=== PATIENT | female | born 1960 | race Caucasian/White ===

== ENCOUNTER → 2018-05-09 | Outpatient (CLI) | payer OTHER ==
--- NOTE | 2018-05-09 20:42 | XR ---
EXAMINATION TYPE: XR knee limited LT DATE OF EXAM: 05/09/2018 CLINICAL HISTORY: Pain. TECHNIQUE: Two views of the left knee are obtained. COMPARISON: None. FINDINGS: There is no acute fracture/dislocation evident in left knee. There is mild tricompartment joint space loss without significant spurring. The overlying soft tissue appears unremarkable. IMPRESSION: As above.
== END | disposition home or self-care (01) ==
LOC: RADXRMAIN 16:57
PROVIDERS: ATTEND Family Medicine
DX: M25.862 Other specified joint disorders, left knee (principal); M25.562 Pain in left knee

== ENCOUNTER → 2021-01-13 | Outpatient (CLI) | payer BC ==
--- NOTE | 2021-01-16 12:22 | MM ---
Reason for exam: screening (asymptomatic). Last mammogram was performed 5 years and 5 months ago. History: Patient is postmenopausal. Physical Findings: A clinical breast exam by your physician is recommended on an annual basis and results should be correlated with mammographic findings. MG Screening Mammo w CAD Bilateral CC and MLO view(s) were taken. Prior study comparison: August 04, 2015, left breast MG work up mamm w CAD LT. July 18, 2015, bilateral MG screening mammo w CAD. There are scattered fibroglandular densities. There is no discrete abnormality. No significant changes when compared with prior studies. ASSESSMENT: Negative, BI-RAD 1 RECOMMENDATION: Routine screening mammogram of both breasts in 1 year.
== END | disposition home or self-care (01) ==
LOC: RADMAMWWP 07:04
PROVIDERS: ATTEND Family Medicine
DX: Z12.31 Encounter for screening mammogram for malignant neoplasm of breast (principal); Z78.0 Asymptomatic menopausal state
CPT/HCPCS: 77067

== ENCOUNTER → 2022-01-15 | Outpatient (CLI) | payer BC ==
--- NOTE | 2022-01-17 09:25 | MM ---
Reason for exam: screening (asymptomatic). Last mammogram was performed 1 year ago. History: Patient is postmenopausal. Physical Findings: A clinical breast exam by your physician is recommended on an annual basis and results should be correlated with mammographic findings. MG Screening Mammo w CAD Bilateral CC and MLO view(s) were taken. Prior study comparison: January 13, 2021, bilateral MG screening mammo w CAD. August 04, 2015, left breast MG work up mamm w CAD LT. There are scattered fibroglandular densities. Focal asymmetry in the left breast, stable. No significant changes when compared with prior studies. ASSESSMENT: Benign, BI-RAD 2 RECOMMENDATION: Routine screening mammogram of both breasts in 1 year.
== END | disposition home or self-care (01) ==
LOC: RADMAMWWP 15:22
PROVIDERS: ATTEND Family Medicine
DX: Z12.31 Encounter for screening mammogram for malignant neoplasm of breast (principal); Z78.0 Asymptomatic menopausal state
CPT/HCPCS: 77067

== ENCOUNTER 2023-07-07 17:17 | Observation (INO) | payer BC, OTHER ==
--- NOTE | 2023-07-07 17:29 | ED ---
General Adult HPI - General Source: patient, RN notes reviewed <Kimberly Beasley - Last Filed: 07/08/23 00:07> <Carmen Ya - Last Filed: 07/08/23 01:38> - General Stated complaint: LOWER BACK PAIN W VOMITING Time Seen by Provider: 07/07/23 17:30 - History of Present Illness Initial comments: 62 year old female presents to the emergency department for chief complaint of right flank pain x1 day. She states that she was at her daughters house and noticed the pain start while she was sitting. She reports that the pain radiates to the right sided groin. Denies aggravating and alleviating factors. No history of kidney stones. PMH includes HTN. Denies fever, chills, dysuria. (Kimberly Beasley) - Related Data Home Medications Medication Instructions Recorded Confirmed hydroCHLOROthiazide 25 mg PO DAILY 12/15/19 12/18/19 Allergies Allergy/AdvReac Type Severity Reaction Status Date / Time amoxicillin Allergy Rash/Hives Verified 07/07/23 17:31 sulfamethoxazole Allergy Rash/Hives Verified 07/07/23 17:31 [From Septra] trimethoprim [From Junra] Allergy Rash/Hives Verified 07/07/23 17:31 Review of Systems ROS Other: All systems not noted in ROS Statement are negative. <Kimberly Beasley - Last Filed: 07/08/23 00:07> ROS Other: All systems not noted in ROS Statement are negative. <Carmen Ya P - Last Filed: 07/08/23 01:38> ROS Statement: Those systems with pertinent positive or pertinent negative responses have been documented in the HPI. Past Medical History Past Medical History: GERD/Reflux, Hypertension, Osteoarthritis (OA) Additional Past Medical History / Comment(s): hx migraines years ago, History of Any Multi-Drug Resistant Organisms: None Reported Past Surgical History: Orthopedic Surgery, Tubal Ligation Additional Past Surgical History / Comment(s): left knee arthroscopy Past Anesthesia/Blood Transfusion Reactions: No Reported Reaction Past Psychological History: No Psychological Hx Reported Past Alcohol Use History: Occasional Past Drug Use History: None Reported - Past Family History Mother Family Medical History: Cancer Additional Family Medical History / Comment(s): colon Sister(s) Family Medical History: Cancer Additional Family Medical History / Comment(s): bone cancer <Kimberly Beasley - Last Filed: 07/08/23 00:07> General Exam Limitations: no limitations General appearance: alert, in no apparent distress Head exam: Present: atraumatic, normocephalic, normal inspection Eye exam: Present: normal appearance, PERRL, EOMI. Absent: scleral icterus, conjunctival injection, periorbital swelling ENT exam: Present: normal exam, mucous membranes moist Neck exam: Present: normal inspection. Absent: tenderness, meningismus, lymphadenopathy Respiratory exam: Present: normal lung sounds bilaterally. Absent: respiratory distress, wheezes, rales, rhonchi, stridor Cardiovascular Exam: Present: regular rate, normal rhythm, normal heart sounds. Absent: systolic murmur, diastolic murmur, rubs, gallop, clicks GI/Abdominal exam: Present: tenderness, normal bowel sounds. Absent: distended, guarding, rebound, rigid Extremities exam: Present: normal inspection, full ROM, normal capillary refill. Absent: tenderness, pedal edema, joint swelling, calf tenderness Back exam: Present: normal inspection Neurological exam: Present: alert, oriented X3 Psychiatric exam: Present: normal affect, normal mood Skin exam: Present: warm, dry, intact, normal color. Absent: rash <Kimberly Beasley - Last Filed: 07/08/23 00:07> - General Exam Comments Initial Comments: Visual Physical Exam Vital signs reviewed General: Well-appearing, nontoxic, no acute distress. Head: Normocephalic, atraumatic Eyes: PERRLA, EOMI ENT: Airway patent Chest: Nonlabored breathing Skin: No visual rash, normal skin tone Neuro: Alert and oriented 3 Musculoskeletal: No gross abnormalities (Kimberly Beasley) Course Vital Signs 07/07/23 07/08/23 17:31 01:00 Temperature 98.0 F Pulse Rate 87 79 Respiratory 18 18 Rate Blood Pressure 154/65 126/79 O2 Sat by Pulse 99 94 L Oximetry Medical Decision Making - Lab Data Result diagrams: 07/07/23 19:10 07/07/23 19:10 <Kimberly Beasley - Last Filed: 07/08/23 00:07> - Lab Data Result diagrams: 07/07/23 19:10 07/07/23 19:10 <Carmen Ya - Last Filed: 07/08/23 01:38> - Medical Decision Making I preformed the quick note portion of this chart. Electronically signed by Kimberly Beasley PA-C Was pt. sent in by a medical professional or institution (MARIA ISABEL Rodas, INFORMATION MANAGEMENT SPECIALIST, urgent care, hospital, or fci...) When possible be specific @ -[No] Did you speak to anyone other than the patient for history (EMS, parent, family, police, friend...)? What history was obtained from this source @ -[No] Did you review nursing and triage notes (agree or disagree)? Why? @ -[I reviewed and agree with nursing and triage notes] Were old charts reviewed (outside hosp., previous admission, EMS record, old EKG, old radiological studies, urgent care reports/EKG's, fci records)? Report findings @ -[No old charts were reviewed] Differential Diagnosis (chest pain, altered mental status, abdominal pain women, abdominal pain men, vaginal bleeding, weakness, fever, dyspnea, syncope, headache, dizziness, GI bleed, back pain, seizure, CVA, palpatations, mental health, musculoskeletal)? @ -[Differential Abdominal Pain Women: Appendicitis, Cholecystitis, diverticulosis, ischemic bowel, pancreatitis, hepatitis, UTI, gastroenteritis, AAA, incarcerated hernia, bowel obstruction, constipation, inflammatory bowel, hepatitis, peptic ulcer disease, splenic infarction, perforated viscus, vulvitis, ovarian torsion, PID, kidney stone, placenta abruption, this is not meant to be an all-inclusive list] EKG interpreted by me (3pts min.). @ -[None] X-rays interpreted by me (1pt min.). @ -[None done] CT interpreted by me (1pt min.). @ -[CT abdomen and pelvis shows 9 mm obstructing stone in the right ureteropelvic junction with moderate hydronephrosis] U/S interpreted by me (1pt. min.). @ -[None done] What testing was considered but not performed or refused? (CT, X-rays, U/S, labs)? Why? @ -[None] What meds were considered but not given or refused? Why? @ -[None] Did you discuss the management of the patient with other professionals (professionals i.e. Dr., PA, INFORMATION MANAGEMENT SPECIALIST, lab, RT, psych nurse, social services coordinator, hairmasters manager, teacher, loan officer assistant, case supervisor)? Give summary @ -[Management discussed with Dr. Lau who states if symptoms well controlled she can follow up outpatient this week or be admitted for symptom management] Was smoking cessation discussed for >3mins.? @ -[No] Was critical care preformed (if so, how long)? @ -[No] Were there social determinants of health that impacted care today? How? (Homelessness, low income, unemployed, alcoholism, drug addiction, transportation, low edu. Level, literacy, decrease access to med. care, skilled nursing, rehab)? @ -[No] Was there de-escalation of care discussed even if they declined (Discuss DNR or withdrawal of care, Hospice)? DNR status @ -[No] What co-morbidities impacted this encounter? (DM, HTN, Smoking, COPD, CAD, Cancer, CVA, ARF, Chemo, Hep., AIDS, mental health diagnosis, sleep apnea, morbid obesity)? @ -[None] Was patient admitted / discharged? Hospital course, mention meds given and route, prescriptions, significant lab abnormalities, going to OR and other p ertinent info. @ -[Patient presented emergency department with chief complaint of right flank pain radiating to the groin 1 day. She reports that this has associated nausea and vomiting. She is not taking anything for pain today. She denies any urinary symptoms or history of kidney stones. CT abdomen and pelvis shows 9 mm obstructing stone in the right ureter pelvic junction with moderate hydronephrosis. CBC shows WBC 12.0, hemoglobin 14.3; CMP shows sodium 135, potassium 4.3. UA shows large blood, 19 WBCs. Patient's symptoms were temporarily controlled with Toradol and Zofran. On reevaluation, patient reports pain at 9 out of 10 and nausea again. Management discussed with Dr. Lau who states that if the patient's symptoms are controlled to go home with outpatient follow-up or be admitted to the hospital for symptom management with Dr. Lau on consult. She given morphine and Reglan. Case turned over to Dr. Ya at 0010 pending admission. ] Undiagnosed new problem with uncertain prognosis? @ -[No] Drug Therapy requiring intensive monitoring for toxicity (Heparin, Nitro, Insulin, Cardizem)? @ -[No] Were any procedures done? @ -[No] Diagnosis/symptom? @ -[Right renal stone] Acute, or Chronic, or Acute on Chronic? @ -[acute] Uncomplicated (without systemic symptoms) or Complicated (systemic symptoms)? @ -uncomplicated Side effects of treatment? @ -[No] Exacerbation, Progression, or Severe Exacerbation? @ -[No] Poses a threat to life or bodily function? How? (Chest pain, [place], [place], pneumonia, PE, COPD, DKA, ARF, appy, cholecystitis, CVA, Diverticulitis, Homicidal, Suicidal, threat to staff... and all critical care pts) @ -[No] (Kimberly Beasley) Patient has a 9 mm obstructing stone with significant pain, received 2 doses of pain medication in the emergency department and will be admitted for pain management and evaluation by urology for possible cystography. Nothing by mouth orders were placed. Pain management orders were placed. Dr. Ng accepts the admission. (Carmen Ya) - Lab Data Lab Results 07/07/23 07/07/23 07/07/23 Range/Units 19:10 19:10 23:00 WBC 12.0 H (3.8-10.6) k/uL RBC 4.90 (3.80-5.40) m/uL Hgb 14.3 (11.4-16.0) gm/dL Hct 43.4 (34.0-46.0) % MCV 88.6 (80.0-100.0) fL MCH 29.2 (25.0-35.0) pg MCHC 33.0 (31.0-37.0) g/dL RDW 13.2 (11.5-15.5) % Plt Count 385 (150-450) k/uL MPV 7.5 Neutrophils % 75 % Lymphocytes % 20 % Monocytes % 4 % Eosinophils % 1 % Basophils % 0 % Neutrophils # 8.9 H (1.3-7.7) k/uL Lymphocytes # 2.4 (1.0-4.8) k/uL Monocytes # 0.4 (0-1.0) k/uL Eosinophils # 0.1 (0-0.7) k/uL Basophils # 0.0 (0-0.2) k/uL Sodium 135 L (137-145) mmol/L Potassium 4.3 (3.5-5.1) mmol/L Chloride 101 (98-107) mmol/L Carbon Dioxide 20 L (22-30) mmol/L Anion Gap 14 mmol/L BUN 18 H (7-17) mg/dL Creatinine 0.83 (0.52-1.04) mg/dL Est GFR (CKD-EPI)AfAm 87 (>60 ml/min/1.73 sqM) Est GFR (CKD-EPI)NonAf 76 (>60 ml/min/1.73 sqM) Glucose 139 H (74-99) mg/dL Calcium 10.0 (8.4-10.2) mg/dL Total Bilirubin 0.5 (0.2-1.3) mg/dL AST 30 (14-36) U/L ALT 25 (4-34) U/L Alkaline Phosphatase 102 (38-126) U/L Total Protein 7.9 (6.3-8.2) g/dL Albumin 4.7 (3.5-5.0) g/dL Amylase 45 (30-110) U/L Lipase 116 (23-300) U/L Urine Color Light Red Urine Appearance Clear (Clear) Urine pH 6.0 (5.0-8.0) Ur Specific [place] 1.028 (1.001-1.035) Urine Protein 1+ H (Negative) Urine Glucose (UA) Negative (Negative) Urine Ketones 2+ H (Negative) Urine Blood Large H (Negative) Urine Nitrite Negative (Negative) Urine Bilirubin Negative (Negative) Urine Urobilinogen <2.0 (<2.0) mg/dL Ur Leukocyte Esterase Trace H (Negative) Urine RBC >182 H (0-5) /hpf Urine WBC 19 H (0-5) /hpf Ur Squamous Epith Cells 3 (0-4) /hpf Urine Bacteria Occasional H (None) /hpf Hyaline Casts 23 H (0-2) /lpf Urine Mucus Few H (None) /hpf Disposition <Kimberly Beasley - Last Filed: 07/08/23 00:07> Is patient prescribed a controlled substance at d/c from ED?: No <Carmen Ya - Last Filed: 07/08/23 01:38> Clinical Impression: Nephrolithiasis Disposition: ADMITTED IP TO THIS HOSP Condition: Stable
[2023-07-07 19:35] LABS: Basophils % (A) 0 %; Eosinophils # (A) 0.1 k/uL (0-0.7); Eosinophils % (A) 1 %; HCT 43.4 % (34.0-46.0); HGB 14.3 gm/dL (11.4-16.0); Lymphocytes # (A) 2.4 k/uL (1.0-4.8); Lymphocytes % (A) 20 %; MCH 29.2 pg (25.0-35.0); MCV 88.6 fL (80.0-100.0); Mean Platelet Volume 7.5; Monocytes # (A) 0.4 k/uL (0-1.0); Monocytes % (A) 4 %; Neutrophils # (A) 8.9 k/uL (1.3-7.7); Neutrophils % (A) 75 %; Platelet Count 385 k/uL (150-450); RDW 13.2 % (11.5-15.5)
[2023-07-07 19:44] LABS: ALT 25 U/L (4-34); AST 30 U/L (14-36); African American GFR (CKD) 87 (>60 ml/min/1.73 sqM); Albumin 4.7 g/dL (3.5-5.0); Alkaline Phosphatase 102 U/L (38-126); Amylase 45 U/L (30-110); Anion Gap 14 mmol/L; Blood Urea Nitrogen 18 mg/dL (7-17); Carbon Dioxide 20 mmol/L (22-30); Chloride 101 mmol/L (98-107); Glucose 139 mg/dL (74-99); Lipase 116 U/L (23-300); Non-African American GFR(CKD) 76 (>60 ml/min/1.73 sqM); Potassium 4.3 mmol/L (3.5-5.1); Sodium 135 mmol/L (137-145); Total Bilirubin 0.5 mg/dL (0.2-1.3); Total Protein 7.9 g/dL (6.3-8.2)
--- NOTE | 2023-07-07 20:03 | CT ---
EXAMINATION TYPE: CT abdomen pelvis wo con CT DLP: 743.3 mGycm, Automated exposure control for dose reduction was used. DATE OF EXAM: 07/07/2023 7:30 PM COMPARISON: None. CLINICAL INDICATION:Female, 62 years old with history of flank pain, rt; right flank pain, nausea, vo miting TECHNIQUE: Axial CT of the abdomen and pelvis. Sagittal and coronal reformats were created on a [employer] workstation. Contrast used: None (none if empty) Oral contrast used: without Oral Contrast (none if empty) FINDINGS: LOWER CHEST: Unremarkable ABDOMEN LIVER: Unremarkable GALLBLADDER AND BILE DUCTS: Unremarkable. PANCREAS: Unremarkable. SPLEEN: Unremarkable. ADRENAL GLANDS: Unremarkable. KIDNEYS AND URETERS: Moderate right hydronephrosis secondary obstructing 9 mm calculus at the uretero pelvic junction. No evidence of left renal calculus or obstruction. PELVIS BLADDER: Unremarkable REPRODUCTIVE: Unremarkable. ABDOMEN & PELVIS STOMACH AND BOWEL: Moderate hiatal hernia. No evidence of bowel obstruction. The appendix is normal. Scattered colonic diverticula. PERITONEUM/RETROPERITONEUM: No evidence of pneumoperitoneum or free fluid. VASCULATURE: Mild atherosclerotic calcifications are present throughout the abdominal aorta and its b ranches. No evidence of aortic aneurysm. MUSCULOSKELETAL: L1 vertebral body compression deformity. There is grade 1 anterolisthesis of L4 and L5. No acute osseous abnormalities. Mild disc degeneration changes are present throughout the thoraco lumbar spine. LYMPH NODES: No gross evidence for lymphadenopathy. SOFT TISSUE/ABDOMINAL WALL: Fat-containing umbilical hernia. IMPRESSION: 1. Moderate right hydronephrosis secondary obstructing 9 mm calculus at the ureteropelvic junction. 2. Moderate hiatal hernia. 3. Colonic diverticulosis.
[2023-07-07] MEDS ORDERED: ONDANSETRON 4 MG/2 ML VIAL IVP STA (21:03)
[2023-07-07] MEDS ORDERED: KETOROLAC 15 MG/ML 1 ML VIAL IVP STA (21:03)
[2023-07-07] MEDS ORDERED: METOCLOPRAMIDE 5 MG/ML 2 ML VIAL IVP STA (23:42)
[2023-07-07] MEDS ORDERED: MORPHINE SULFATE 2 MG/ML SYRINGE IVP ONE (23:42)
[2023-07-07] MEDS ORDERED: SODIUM CHLORIDE 0.9% 500 ML 500 ML IV ONE (23:47)
[2023-07-07 23:51] LABS: Appearance,Urine Clear (Clear); Bacteria,Urine Occasional /hpf; Bilirubin,Urine Negative (Negative); Blood,Urine Large (Negative); Color,Urine Light Red; Glucose,Urine (UA) Negative (Negative); Hyaline Casts,Urine 23 /lpf (0-2); Ketones,Urine 2+ (Negative); Leukocyte Esterase,Urine Trace (Negative); Mucus,Urine Few /hpf; Nitrite,Urine Negative (Negative); Protein,Urine 1+ (Negative); RBC,Urine >182 /hpf (0-5); Specific Gravity,Urine 1.028 (1.001-1.035); Squamous Epithelial Cell,Urine 3 /hpf (0-4); Urobilinogen,Urine <2.0 mg/dL (<2.0); WBC,Urine 19 /hpf (0-5)
[2023-07-08] MEDS ORDERED: MORPHINE SULFATE 4 MG/ML SYRINGE IVP PRN (00:06)
[2023-07-08] MEDS ORDERED: NALOXONE 0.4 MG/ML 1 ML VIAL IV PRN (01:09)
[2023-07-08] MEDS ORDERED: MORPHINE SULFATE 4 MG/ML SYRINGE IV PRN (01:09)
[2023-07-08] MEDS ORDERED: ONDANSETRON 4 MG/2 ML VIAL IVP PRN (01:09)
[2023-07-08] MEDS: SODIUM CHLORIDE 0.9% 1,000 ML IV SCH ×2 (01:19→16:22)
[2023-07-08] MEDS: KETOROLAC 15 MG/ML 1 ML VIAL IVP PRN (06:15)
[2023-07-08] MEDS: LEVOFLOXACIN 500MG-D5W PMX 500 MG in DEXTROSE/WATER 1 100ML.BAG IVPB SCH (09:14)
--- NOTE | 2023-07-08 12:53 | P.HPIM ---
History of Present Illness H&P Date: 07/08/23 History of present illness; patient is a 62-year-old lady with past medical hist ory significant for hypertension who presented to The ER because of right flank pain. Patient stated she was all right yesterday when she started noticing right flank pain, sudden onset, intermittent, excruciating, radiating down her right groin, no aggravating or relieving factors associated with this flank pain. There was no complain of any fever or chills. Patient was complaining of nausea and vomiting associated with this flank pain. Denies any burning pain while urination. Denies any hematuria. Because of right flank pain, patient came to the ER Initial lab work done in the ER showed WBC 12, hemoglobin 14.8, platelet count 85, sodium 139 potassium 4.3, BUN 18.83, glucose 139 UA done showed nitrite negative, leukocyte Estrace trace amounts, urine WBC 19, RBC 182, CT abdominal and pelvis done showed moderate right hydronephrosis secondary to obstructing 9 mm stone at the ureteropelvic junction Patient admitted to medicine service REVIEW OF SYSTEMS: CONSTITUTIONAL: No fever, no malaise, no fatigue. HEENT: No recent visual problems or hearing problems. Denied any sore throat. CARDIOVASCULAR: No chest pain, orthopnea, PND, no palpitations, no syncope. PULMONARY: No shortness of breath, no cough, no hemoptysis. GASTROINTESTINAL: As mentioned above NEUROLOGICAL: No headaches, no weakness, no numbness. HEMATOLOGICAL: Denies any bleeding or petechiae. GENITOURINARY: As mentioned above MUSCULOSKELETAL/RHEUMATOLOGICAL: Denies any joint pain, swelling, or any muscle pain. ENDOCRINE: Denies any polyuria or polydipsia. The rest of the 14-point review of systems is negative. PHYSICAL EXAMINATION: GENERAL: The patient is alert and oriented x3, not in any acute distress. Well developed, well nourished. HEENT: Pupils are round and equally reacting to light. EOMI. No scleral icterus. No conjunctival pallor. Normocephalic, atraumatic. No pharyngeal erythema. No thyromegaly. CARDIOVASCULAR: S1 and S2 present. No murmurs, rubs, or gallops. PULMONARY: Chest is clear to auscultation, no wheezing or crackles. ABDOMEN: Soft, nontender, nondistended, normoactive bowel sounds. No palpable organomegaly. MUSCULOSKELETAL: No joint swelling or deformity. EXTREMITIES: No cyanosis, clubbing, or pedal edema. NEUROLOGICAL: Gross neurological examination did not reveal any focal deficits. SKIN: No rashes. Assessment and plan Right ureter stone Right-sided Hydronephrosis Hypertension Monitor vital signs Monitor CBC Monitor CMP Continue IV fluids Continue pain management Continue IV Levaquin Continue antiemetics Urology consulted Labs and medication were reviewed.. Continue same treatment. Continue with symptomatic treatment. Resume home medication. Monitor labs and vitals. DVT and GI prophylaxis. Further recommendations as per clinical course of the patient Dictation was produced using [employer] dictation software. please excuse any grammatical, word or spelling errors. Past Medical History Past Medical History: GERD/Reflux, Hypertension, Osteoarthritis (OA) Additional Past Medical History / Comment(s): hx migraines years ago, History of Any Multi-Drug Resistant Organisms: None Reported Past Surgical History: Orthopedic Surgery, Tubal Ligation Additional Past Surgical History / Comment(s): left knee arthroscopy Past Anesthesia/Blood Transfusion Reactions: No Reported Reaction Past Psychological History: No Psychological Hx Reported Smoking Status: Unknown if ever smoked Past Alcohol Use History: Occasional Past Drug Use History: None Reported - Past Family History Mother Family Medical History: Cancer Additional Family Medical History / Comment(s): colon Sister(s) Family Medical History: Cancer Additional Family Medical History / Comment(s): bone cancer Medications and Allergies Home Medications Medication Instructions Recorded Confirmed Type No Known Home Medications 07/08/23 07/08/23 History Allergies Allergy/AdvReac Type Severity Reaction Status Date / Time amoxicillin Allergy Rash/Hives Verified 07/08/23 08:10 sulfamethoxazole Allergy Rash/Hives Verified 07/08/23 08:10 [From ] trimethoprim [From ] Allergy Rash/Hives Verified 07/08/23 08:10 Physical Exam Vitals: Vital Signs Temp Pulse Resp BP Pulse Ox 07/08/23 08:00 16 07/08/23 07:51 97.8 F 74 16 136/67 98 07/08/23 05:40 80 16 132/73 07/08/23 03:44 79 16 126/78 94 L 07/08/23 01:00 79 18 126/79 94 L 07/07/23 17:31 98.0 F 87 18 154/65 99 Intake and Output 07/07/23 07/08/23 07/08/23 22:59 06:59 14:59 Other: Weight 83.007 kg 83.007 kg Results CBC & Chem 7: 07/07/23 19:10 07/07/23 19:10 Labs: Abnormal Lab Results - Last 24 Hours (Table) 07/07/23 07/07/23 07/07/23 Range/Units 19:10 19:10 23:00 WBC 12.0 H (3.8-10.6) k/uL Neutrophils # 8.9 H (1.3-7.7) k/uL Sodium 135 L (137-145) mmol/L Carbon Dioxide 20 L (22-30) mmol/L BUN 18 H (7-17) mg/dL Glucose 139 H (74-99) mg/dL Urine Protein 1+ H (Negative) Urine Ketones 2+ H (Negative) Urine Blood Large H (Negative) Ur Leukocyte Esterase Trace H (Negative) Urine RBC >182 H (0-5) /hpf Urine WBC 19 H (0-5) /hpf Urine Bacteria Occasional H (None) /hpf Hyaline Casts 23 H (0-2) /lpf Urine Mucus Few H (None) /hpf
[2023-07-09] MEDS: SODIUM CHLORIDE 0.9% 1,000 ML IV SCH ×2 (06:30→17:37)
[2023-07-09] MEDS: KETOROLAC 15 MG/ML 1 ML VIAL IVP PRN ×3 (08:16→21:54)
[2023-07-09] MEDS: LEVOFLOXACIN 500MG-D5W PMX 500 MG in DEXTROSE/WATER 1 100ML.BAG IVPB SCH (08:16)
[2023-07-09] MEDS ORDERED: TAMSULOSIN 0.4 MG CAP.ER.24H PO STA (09:27)
--- NOTE | 2023-07-09 10:00 | P.GSCN ---
History of Present Illness Consult date: 07/08/23 Reason for Consult: right ure History of present illness: This is a 62 yo female with hx of 9mm right sided ureteral stone. She was admitted to the hospital with intractable pain, it's associated with nausea. Denies any gross hematuria. No previous history of kidney stones. No known History of kidney stones. In the air pain was controlled with IV pain medications. She underwent a CT which showed evidence of a 9 mm right-sided UPJ stone with moderate hydronephrosis. Review of Systems - Constitutional Denies fever, Denies weight loss - Cardiovascular Denies chest pain, Denies shortness of breath - Respiratory Denies cough, Denies 7 - Gastrointestinal Reports abdominal pain, Reports nausea - Genitourinary Genitourinary: Reports flank pain, Denies dysuria, Denies hematuria - Neurological Denies headaches, Denies syncope Past Medical History Past Medical History: GERD/Reflux, Hypertension, Osteoarthritis (OA) Additional Past Medical History / Comment(s): hx migraines years ago, History of Any Multi-Drug Resistant Organisms: None Reported Past Surgical History: Orthopedic Surgery, Tubal Ligation Additional Past Surgical History / Comment(s): left knee arthroscopy Past Anesthesia/Blood Transfusion Reactions: No Reported Reaction Past Psychological History: No Psychological Hx Reported Smoking Status: Unknown if ever smoked Past Alcohol Use History: Occasional Past Drug Use History: None Reported - Past Family History Mother Family Medical History: Cancer Additional Family Medical History / Comment(s): colon Sister(s) Family Medical History: Cancer Additional Family Medical History / Comment(s): bone cancer Medications and Allergies Home Medications Medication Instructions Recorded Confirmed Type No Known Home Medications 07/08/23 07/08/23 History Allergies Allergy/AdvReac Type Severity Reaction Status Date / Time amoxicillin Allergy Rash/Hives Verified 07/08/23 08:10 sulfamethoxazole Allergy Rash/Hives Verified 07/08/23 08:10 [From ] trimethoprim [From ] Allergy Rash/Hives Verified 07/08/23 08:10 Surgical - Exam Vital Signs Temp Pulse Resp BP Pulse Ox 98.0 F 87 18 154/65 99 07/07/23 17:31 07/07/23 17:31 07/07/23 17:31 07/07/23 17:31 07/07/23 17:31 - General no distress, moderate pain - Eyes normal ocular movement, no pale - ENT normal nares, normal mucosa - Respiratory normal expansion, normal respiratory effort - Abdomen Abdomen: soft, tender (Right flank) - Psychiatric oriented to time, oriented to person, oriented to place Results - Labs 07/07/23 19:10 07/07/23 19:10 Abnormal Lab Results - Last 24 Hours (Table) 07/07/23 07/07/23 07/07/23 Range/Units 19:10 19:10 23:00 WBC 12.0 H (3.8-10.6) k/uL Neutrophils # 8.9 H (1.3-7.7) k/uL Sodium 135 L (137-145) mmol/L Carbon Dioxide 20 L (22-30) mmol/L BUN 18 H (7-17) mg/dL Glucose 139 H (74-99) mg/dL Urine Protein 1+ H (Negative) Urine Ketones 2+ H (Negative) Urine Blood Large H (Negative) Ur Leukocyte Esterase Trace H (Negative) Urine RBC >182 H (0-5) /hpf Urine WBC 19 H (0-5) /hpf Urine Bacteria Occasional H (None) /hpf Hyaline Casts 23 H (0-2) /lpf Urine Mucus Few H (None) /hpf Diabetes panel 07/07/23 Range/Units 19:10 Sodium 135 L (137-145) mmol/L Potassium 4.3 (3.5-5.1) mmol/L Chloride 101 (98-107) mmol/L Carbon Dioxide 20 L (22-30) mmol/L BUN 18 H (7-17) mg/dL Creatinine 0.83 (0.52-1.04) mg/dL Glucose 139 H (74-99) mg/dL Calcium 10.0 (8.4-10.2) mg/dL AST 30 (14-36) U/L ALT 25 (4-34) U/L Alkaline Phosphatase 102 (38-126) U/L Total Protein 7.9 (6.3-8.2) g/dL Albumin 4.7 (3.5-5.0) g/dL Calcium panel 07/07/23 Range/Units 19:10 Calcium 10.0 (8.4-10.2) mg/dL Albumin 4.7 (3.5-5.0) g/dL Pituitary panel 07/07/23 Range/Units 19:10 Sodium 135 L (137-145) mmol/L Potassium 4.3 (3.5-5.1) mmol/L Chloride 101 (98-107) mmol/L Carbon Dioxide 20 L (22-30) mmol/L BUN 18 H (7-17) mg/dL Creatinine 0.83 (0.52-1.04) mg/dL Glucose 139 H (74-99) mg/dL Calcium 10.0 (8.4-10.2) mg/dL Adrenal panel 07/07/23 Range/Units 19:10 Sodium 135 L (137-145) mmol/L Potassium 4.3 (3.5-5.1) mmol/L Chloride 101 (98-107) mmol/L Carbon Dioxide 20 L (22-30) mmol/L BUN 18 H (7-17) mg/dL Creatinine 0.83 (0.52-1.04) mg/dL Glucose 139 H (74-99) mg/dL Calcium 10.0 (8.4-10.2) mg/dL Total Bilirubin 0.5 (0.2-1.3) mg/dL AST 30 (14-36) U/L ALT 25 (4-34) U/L Alkaline Phosphatase 102 (38-126) U/L Total Protein 7.9 (6.3-8.2) g/dL Albumin 4.7 (3.5-5.0) g/dL - Imaging CT scan - abdomen: image reviewed (9 Millimeter right UPJ stone with hydronephrosis) Assessment and Plan Assessment: This is a 62-year-old female history of a 9 mm right-sided UPJ stone, she symptomatically from her stone. Option of right-sided ureteroscopy with holmium laser was discussed with her. Aware of the risk which was benign limited to bleeding, infection, injury to the ureter. Risk of anesthesia was also discussed -Or for right-sided ureteroscopy, holmium laser lithotripsy, stone basketing and stent insertion
[2023-07-09] MEDS ORDERED: SODIUM CHLORIDE 0.9% 1,000 ML IV ONE (11:55)
[2023-07-09] MEDS ORDERED: ONDANSETRON 4 MG/2 ML VIAL IVP ONE (11:55)
[2023-07-09] MEDS ORDERED: DEXAMETHASONE SOD PHOSPHATE 4 MG/ML 1 ML VIAL IVP ONE (11:56)
--- NOTE | 2023-07-09 13:03 | P.PN ---
Subjective Progress Note Date: 07/09/23 * 62-year-old lady with past medical history significant for hypertension who presented to The ER because of right flank pain. Patient stated she was all right yesterday when she started noticing right flank pain, sudden onset, intermittent, excruciating, radiating down her right groin, no aggravating or relieving factors associated with this flank pain. There was no complain of any fever or chills. Patient was complaining of nausea and vomiting associated with this flank pain. Denies any burning pain while urination. Denies any hematuria. Because of right flank pain, patient came to the ER * Initial lab work done in the ER showed WBC 12, hemoglobin 14.8, platelet count 85, sodium 139 potassium 4.3, BUN 18.83, glucose 139 * UA done showed nitrite negative, leukocyte Estrace trace amounts, urine WBC 19, RBC 182, * CT abdominal and pelvis done showed moderate right hydronephrosis secondary to obstructing 9 mm stone at the ureteropelvic junction * Consultations obtained from urology. Waiting for cystoscopy Objective - Vital Signs Vital signs: Vital Signs Temp 97.6 F 07/09/23 11:54 Pulse 69 07/09/23 11:54 Resp 18 07/09/23 11:54 BP 164/76 07/09/23 11:54 Pulse Ox 94 L 07/09/23 11:54 FiO2 Intake & Output 07/08/23 07/09/23 07/09/23 18:59 06:59 18:59 Intake Total 120 600 500 Balance 120 600 500 Intake: IV 500 Oral 120 600 Other: Voiding Method Toilet Toilet Toilet # Voids 1 1 - Exam PHYSICAL EXAMINATION: GENERAL: The patient is alert and oriented x3, not in any acute distress. Well developed, well nourished. HEENT: Pupils are round and equally reacting to light. EOMI. No scleral icterus. No conjunctival pallor. Normocephalic, atraumatic. No pharyngeal erythema. No thyromegaly. CARDIOVASCULAR: S1 and S2 present. No murmurs, rubs, or gallops. PULMONARY: Chest is clear to auscultation, no wheezing or crackles. ABDOMEN: Soft, nontender, nondistended, normoactive bowel sounds. No palpable organomegaly. MUSCULOSKELETAL: No joint swelling or deformity. EXTREMITIES: No cyanosis, clubbing, or pedal edema. NEUROLOGICAL: Gross neurological examination did not reveal any focal deficits. - Labs CBC & Chem 7: 07/07/23 19:10 07/07/23 19:10 Labs: Microbiology - Last 24 Hours (Table) 07/07/23 23:00 Urine Culture - Final Urine,Voided Assessment and Plan Assessment: Assessment and plan * Right ureteral stent for hydronephrosis * History Hypertension * CT abdomen pelvis showed moderate right-sided hydronephrosis with 9 mm calculus., Strain urine, Flomax initiated. Urology consulted * Patient started on IV antibiotic will monitor * Continue with pain control, antiemetics * 10 showed discharge within the next 24 hours
--- NOTE | 2023-07-09 13:44 | P.PN ---
Subjective Progress Note Date: 07/09/23 No acute overnight events, still having flank pain secondary to her stone Objective - Vital Signs Vital signs: Vital Signs Temp 97.6 F 07/09/23 11:54 Pulse 69 07/09/23 11:54 Resp 18 07/09/23 11:54 BP 164/76 07/09/23 11:54 Pulse Ox 94 L 07/09/23 11:54 FiO2 Intake & Output 07/08/23 07/09/23 07/09/23 18:59 06:59 18:59 Intake Total 120 600 500 Balance 120 600 500 Intake: IV 500 Oral 120 600 Other: Voiding Method Toilet Toilet Toilet # Voids 1 1 - Constitutional General appearance: Present: no acute distress - Gastrointestinal General gastrointestinal: Present: soft. Absent: distended, tenderness - Psychiatric Psychiatric: Present: A&O x's 3 - Labs CBC & Chem 7: 07/07/23 19:10 07/07/23 19:10 Labs: Microbiology - Last 24 Hours (Table) 07/07/23 23:00 Urine Culture - Final Urine,Voided Assessment and Plan Assessment: This is a 62-year-old female history of a 9 mm right-sided UPJ stone, she symptomatically from her stone. Option of right-sided ureteroscopy with holmium laser was discussed with her. Aware of the risk which was benign limited to bleeding, infection, injury to the ureter. Risk of anesthesia was also discussed -Or for right-sided ureteroscopy, holmium laser lithotripsy, stone basketing and stent insertion
[2023-07-09] MEDS ORDERED: GENTAMICIN 120 MG in SODIUM CHLORIDE 0.9% 100 ML IVPB STA (14:53)
[2023-07-09] MEDS ORDERED: LACTATED RINGERS 1,000 ML IV ONE (14:58)
--- NOTE | 2023-07-09 15:56 | P.OP ---
Date of Procedure: 07/09/23 Preoperative Diagnosis: Right ureteral stone Postoperative Diagnosis: same Procedure(s) Performed: Cystoscopy, right ureteroscopy, holmium laser lithotripsy, stone basketing and stent insertion Implants: 6-[place] by 24 cm stent in the right ureter Anesthesia: [place] Surgeon: Finn Hutchins Estimated Blood Loss (ml): 5 Pathology: other (Right ureteral stone) Condition: stable Disposition: PACU Indications for Procedure: This is a 62-year-old female history of a 9 mm right-sided UPJ stone, she symptomatically from her stone. Option of right-sided ureteroscopy with holmium laser was discussed with her. Aware of the risk which was benign limited to b leeding, infection, injury to the ureter. Risk of anesthesia was also discussed Operative Findings: Large right-sided radiopaque stone at the UPJ Description of Procedure: Patient brought to the operating room, general anesthesia was induced which was prepped and draped ins sterile fashion and placed in dorsal lithotomy position. Cystoscopy fitted with 21-[place] sheath was inserted per urethra, cystoscopy was performed which showed no abnormality within the bladder. Attention was then carried to the right ureteral orifice which was intubated with a sensor wire. Next a wire was advanced into the kidney under fluoroscopy, At this time a radiopaque stone was visualized. At this time a 1113 [place] access sheath was passed over the wire and into the proximal ureter. Next the flexibile ureteroscope was inserted through the access sheath, a large stone was encountered at the UPJ. Using the holmium laser the stone was fragmented, stone fragments were removed using the stone basket. Repeat renoscopy showed no sizable fragments or injury to the kidney. On fluoroscopy there was no radiopaque densities. Pullback ureteroscopy was performed which showed no injury to the ureter or any ureteral stones, as ureteroscope was withdrawn a sensor wire was advanced through. Next a ureteral stent was passed over the wire, the proximal curl was visualized on fluoroscopy and the distal curl was visualized using the cystoscope. The bladder was emptied at the end of the case. Patient tolerated procedure well was taken to recovery in stable condition
--- NOTE | 2023-07-09 15:57 | FL ---
EXAMINATION TYPE: FL guidance operating room DATE OF EXAM: 07/09/2023 HISTORY: Fluoroscopy time Total dose area product (DAP) in uGy*m?, mGy*cm? (or similar): 0.48596 IMPRESSION: 1. Fluoroscopy time.
[2023-07-10 03:03] VITALS: TEMP 98.1
[2023-07-10] MEDS: SODIUM CHLORIDE 0.9% 1,000 ML IV SCH (06:23)
[2023-07-10] MEDS: KETOROLAC 15 MG/ML 1 ML VIAL IVP PRN (08:51)
[2023-07-10] MEDS: LEVOFLOXACIN 500MG-D5W PMX 500 MG in DEXTROSE/WATER 1 100ML.BAG IVPB SCH (08:52)
[2023-07-10 08:55] LABS: HCT 35.3 % (37.2-46.3); HGB 11.2 d/dL (12.0-15.0); MCH 29.3 pg (27.0-32.0); MCHC 31.7 d/dL (32.0-37.0); MCV 92.4 FL (80.0-97.0); Mean Platelet Volume 10.3 FL (9.5-12.2); NRBC Per 100 WBC 0 X 10*3/uL (0.00-0.01); Platelet Count 245 X 10*3/uL (140-440); RBC 3.82 X 10*6/uL (4.10-5.20); RDW 13.2 % (11.5-14.5); WBC 8.25 X 10*3/uL (4.50-10.00)
[2023-07-10 09:21] LABS: BUN/Creat Ratio 20.56 Ratio (12.00-20.00); Blood Urea Nitrogen 18.5 mg/dL (9.0-27.0); Calcium 8.6 mg/dL (8.7-10.3); Carbon Dioxide 21.6 mmol/L (21.6-31.8); Chloride 108 mmol/L (96-109); Glucose 116 mg/dL (70-110); Potassium 4.8 mmol/L (3.5-5.5); Sodium 141 mmol/L (135-145)
[2023-07-10 11:01] VITALS: BP 135/78; PULSE 70; RESP 16
--- NOTE | 2023-07-10 14:06 | P.DS ---
Providers Date of admission: 07/08/23 01:10 Expected date of discharge: 07/10/23 Attending physician: Romaine Ng Consults: 07/08/23 01:09 Consult Physician Stat Consulting Provider: Ag Lau Consult Reason/Comments: obstructing stone Do you want consulting provider notified?: Already Contacted Primary care physician: [facility] Course: * 62-year-old lady with past medical history significant for hypertension who presented to The ER because of right flank pain. Patient stated she was all right yesterday when she started noticing right flank pain, sudden onset, intermittent, excruciating, radiating down her right groin, no aggravating or relieving factors associated with this flank pain. There was no complain of any fever or chills. Patient was complaining of nausea and vomiting associated with this flank pain. Denies any burning pain while urination. Denies any hematuria. Because of right flank pain, patient came to the ER * Initial lab work done in the ER showed WBC 12, hemoglobin 14.8, platelet count 85, sodium 139 potassium 4.3, BUN 18.83, glucose 139 * UA done showed nitrite negative, leukocyte Estrace trace amounts, urine WBC 19, RBC 182, * CT abdominal and pelvis done showed moderate right hydronephrosis secondary to obstructing 9 mm stone at the ureteropelvic junction * Consultations obtained from urology. * 07/10: Patient is status post cystoscopy and stent placement.Procedure(s) Performed: Cystoscopy, right ureteroscopy, holmium laser lithotripsy, stone basketing and stent insertion * Postprocedure patient complained of abdominal pain and nausea however symptoms are resolved PHYSICAL EXAMINATION: GENERAL: The patient is alert and oriented x3, not in any acute distress. Well developed, well nourished. HEENT: Pupils are round and equally reacting to light. EOMI. No scleral icterus. No conjunctival pallor. Normocephalic, atraumatic. No pharyngeal erythema. No thyromegaly. CARDIOVASCULAR: S1 and S2 present. No murmurs, rubs, or gallops. PULMONARY: Chest is clear to auscultation, no wheezing or crackles. ABDOMEN: Soft, nontender, nondistended, normoactive bowel sounds. No palpable organomegaly. MUSCULOSKELETAL: No joint swelling or deformity. EXTREMITIES: No cyanosis, clubbing, or pedal edema. NEUROLOGICAL: Gross neurological examination did not reveal any focal deficits. Assessment: Assessment and plan * Right ureteral stent for hydronephrosis * History Hypertension * CT abdomen pelvis showed moderate right-sided hydronephrosis with 9 mm calculus., Strain urine, status post cystoscopy and stent placement by urology * Patient was on IV Levaquin and patient transition to oral ciprofloxacin, * Continue with pain control, antiemetics Patient Condition at Discharge: Stable Plan - Discharge Summary Discharge Rx Participant: No New Discharge Prescriptions: New Ciprofloxacin HCl [Cipro] 500 mg PO Q12HR 4 Days #8 tab HYDROcodone/APAP 5-325MG [[place] 5-325] 1 tab PO Q6HR PRN 3 Days #12 tab PRN Reason: Pain Ondansetron Odt [Zofran Odt] 4 mg PO Q8HR PRN 3 Days #9 tab PRN Reason: Nausea And Vomiting Discharge Medication List Ciprofloxacin HCl [Cipro] 500 mg PO Q12HR 4 Days #8 tab 07/10/23 [Rx] HYDROcodone/APAP 5-325MG [[place] 5-325] 1 tab PO Q6HR PRN 3 Days #12 tab 07/10/23 [Rx] Ondansetron Odt [Zofran Odt] 4 mg PO Q8HR PRN 3 Days #9 tab 07/10/23 [Rx] Follow up Appointment(s)/Referral(s): Clifton Sanz DO [Primary Care Provider] - 1-2 days Discharge Disposition: HOME SELF-CARE
--- NOTE | 2023-07-10 17:21 | P.PN ---
Subjective underwent right-sided ureteroscopy with holmium laser yesterday, having bladder pressure. Denies any flank pain Objective - Vital Signs Vital signs: Vital Signs Temp 98.1 F 07/10/23 07:00 Pulse 70 07/10/23 07:00 Resp 16 07/10/23 07:00 BP 135/78 07/10/23 07:00 Pulse Ox 97 07/10/23 07:00 FiO2 Intake & Output 07/09/23 07/10/23 07/10/23 18:59 06:59 18:59 Intake Total 1620 118 Output Total 5 Balance 1615 118 Intake: IV 1500 Oral 120 118 Output: Estimated Blood Loss 5 Other: Voiding Method Toilet Toilet Toilet # Voids 1 2 - Constitutional General appearance: Present: no acute distress - Gastrointestinal General gastrointestinal: Present: soft. Absent: distended, tenderness - Psychiatric Psychiatric: Present: A&O x's 3 - Labs CBC & Chem 7: 07/10/23 03:55 07/10/23 03:55 Labs: Abnormal Lab Results - Last 24 Hours (Table) 07/10/23 07/10/23 Range/Units 03:55 03:55 RBC 3.82 L (4.10-5.20) X 10*6/uL Hgb 11.2 L (12.0-15.0) d/dL Hct 35.3 L (37.2-46.3) % MCHC 31.7 L (32.0-37.0) d/dL BUN/Creatinine Ratio 20.56 H (12.00-20.00) Ratio Glucose 116 H (70-110) mg/dL Calcium 8.6 L (8.7-10.3) mg/dL Assessment and Plan Assessment: This is a 62-year-old female history of a 9 mm right-sided UPJ stone. underwent right-sided ureteroscopy with holmium laser yesterday. -Okay for discharge from urology standpoint -Follow up in 1-2 weeks for cystoscopy stent removal
== END 2023-07-10 15:50 | disposition home or self-care (01) ==
LOC: EC 17:17 → 6NMEDSUR 07-08 01:10
PROVIDERS: ADMIT Hospitalist; ATTEND Hospitalist
DX: N13.2 Hydronephrosis with renal and ureteral calculous obstruction (principal); K21.9 Gastro-esophageal reflux disease without esophagitis; M19.90 Unspecified osteoarthritis, unspecified site; Z79.899 Other long term (current) drug therapy; Z88.0 Allergy status to penicillin; Z88.2 Allergy status to sulfonamides; I10 Essential (primary) hypertension; Z98.51 Tubal ligation status; Z98.890 Other specified postprocedural states; Z80.0 Family history of malignant neoplasm of digestive organs; Z80.8 Family history of malignant neoplasm of other organs or systems
CPT/HCPCS: 96361; 96374; 96375; 99284; 36415; 80053; 80048; 82150; 83690; 85025; 85027; 81001; 82365; 87086; 74176; 52356; G0378 ×3; C2625; C1769; J2270 ×2; J1100; J2765; J2405 ×2; J1956 ×3; J1885 ×4